=== PATIENT | male | born 1955 | race Caucasian/White ===

== ENCOUNTER 2020-12-08 08:19 | Outpatient (REF) | payer MEDICARE, MEDICAID, SELFPAY ==
--- NOTE | 2020-12-08 12:34 | MHC.AU.ANR ---
Adult Audiological Evaluation Date of Visit: 12/08/20 Reason for Appointment: Audiological evaluation due to concern for decreased hearing. Mr. Jo reports difficulties hearing from the left ear over the past year. He also notes intermittent tinnitus from the left ear, which he describes as a low-pitch static. Does patient feel they have a hearing loss?: Yes If Yes, Which Ear?: Left Ear When Was Hearing Difficulty First Noticed?: 1 year ago Has hearing been tested previously?: No Hearing Handicap Inventory: HHIE SCORE: 16 Based on HHIE score, patient has: Mild to moderate perceived hearing handicap Ear History: Bothersome Tinnitus/Ringing/Noises in Ears: Yes, left ear History of occupational noise exposure?: Yes: [employer] for 40 years, does not use HPDs Medical History: Medical History: Diabetes, Heart Problems, High Blood Pressure, Vascular Problems Otoscopy: Right Ear: Non-occluding cerumen deep in canal, able to visualize TM Left Ear: Non-occluding cerumen deep in canal, able to visualize TM Tympanometry: Tympanometry performed due to: Conductive component found in audiometric results Right Ear: Normal Middle Ear System (Type A) Left Ear: Normal Middle Ear System (Type A) Hearing Evaluation: Transducer(s) Used: Insert Earphones, Bone Conduction Method: Conventional Audiometry Stimuli Used: Pure Tones Right Ear: Description of Hearing: Normal hearing from 250-500 Hz, sloping to a mild to moderate sensorineural hearing loss from 750-8000 Hz. Left Ear: Description of Hearing: Mild hearing loss at 250 Hz, sloping to a moderate mixed hearing loss from 500-1000 Hz, a moderate to moderately severe sensorineural hearing loss from 8657-3701 Hz, a moderately severe mixed hearing loss at 4000 Hz, a moderate hearing loss at 6000 Hz and a severe hearing loss at 8000 Hz. Speech Recognition Threshold (SRT): Method Used: Monitored Live Voice Stimuli Used: Spondee Words Right Ear: 25 dBHL Left Ear: 45 dBHL Word Discrimination: Method: Recorded Lists Word Lists Used: NU-6 Right Ear: 96% at 65 dBHL Left Ear: 76% at 85 dBHL Recommendations: Audiological re-evaluation in one year. Referral to Ear, Nose, and Throat is recommended. Recommend referral to ENT to address conductive hearing loss in the left ear. If unable to be treated, hearing aids are recommended. Mr. Jo is welcome to return for a hearing aid consultation after being evaluated by an ENT physician. Diagnosis: Primary Diagnosis: H90.A32 Mixed HL, Unilateral, Left Ear, W/Restricted Contralateral Secondary Diagnosis: H90.A21 SNHL, Unilateral Right Ear, W/Restricted Contralateral Hearing Services Performed: Services Performed: Comprehensive Audiological Evaluation (CPT 48855) Tympanometry (CPT 17676) Signature: Provider: Bienvenido Smith, CCC-A
== END 2020-12-08 08:20 | disposition home or self-care (01) ==
LOC: HO.SH 08:19
PROVIDERS: Visit Provider Nurse Practitioner Family
DX: H90.A32 Mixed conductive and sensorineural hearing loss, unilateral, left ear with restricted hearing on the contralateral side (principal); H90.A21 Sensorineural hearing loss, unilateral, right ear, with restricted hearing on the contralateral side
CPT/HCPCS: 92557; 92567

== ENCOUNTER 2020-12-08 09:44 | Outpatient (REF) | payer MEDICARE, MEDICAID, SELFPAY ==
[2020-12-08 11:03] LABS: MANUAL DIFF FLAG NO
[2020-12-08 11:07] LABS: Basophils Percent Auto 0.3 % (0-2); Eosinophils Absolute Auto 0.4 X10*3/uL (0.0-0.4); Eosinophils Percent Auto 5.4 % (0-4); Hematocrit 43.1 % (42-52); Hemoglobin 14.2 g/dl (14.0-18.0); Imm Gran Abs Auto 0.01 X10*3/uL (0.00-0.03); Imm Gran Pct Auto 0.1 % (0.0-0.4); Lymphocytes Absolute Auto 1.8 X10*3/uL (1.2-4.9); Lymphocytes Percent Auto 25.1 % (20-40); Mean Corpuscular HGB Conc 32.9 g/dl (31.0-36.0); Mean Corpuscular Hemoglobin 30.5 pg (27.0-33.0); Mean Corpuscular Volume 92.5 fL (80-98); Mean Platelet Volume 9.8 fL (9.4-12.4); Monocytes Absolute Auto 0.5 X10*3/uL (0.1-1.2); Monocytes Percent Auto 7.4 % (2-11); Neutrophils Absolute Auto 4.4 X10*3/uL (2.0-8.3); Neutrophils Percent Auto 61.7 % (45-73); Platelet Count 241 X10*3/uL (160-400); Red Blood Count 4.66 X10*6/uL (4.60-5.80); Red Cell Distribution Width 14.1 % (11.0-16.0); White Blood Count 7.2 X10*3/uL (4.8-10.8)
[2020-12-08 11:19] LABS: Glucose Urine UA NEG (NEG); Leukocyte Esterase Urine NEG (NEG); Nitrite Urine NEG (NEG); PH 5.5 (5.0-8.0); Specific Gravity - Urine 1.025 (1.005-1.025); Urine Blood NEG (NEG); Urine Ketones NEG (NEG); Urine Protein NEG (NEG-TRACE)
[2020-12-08 11:21] LABS: Appearance Urine CLEAR; Color Urine YELLOW
[2020-12-08 11:38] LABS: RBC Urine 0-2 /HPF (0); Squamous Epithelial Cell Urine TRACE /LPF; WBC Urine 0-2 /HPF (0-4)
[2020-12-08 11:39] LABS: Albumin Level 4.1 g/dL (3.5-5.0); Anion Gap 12 (12-20); Blood Urea Nitrogen 41 mg/dL (9-16); Calcium 9.6 mg/dL (8.4-10.2); Carbon Dioxide 25 mmol/L (22-29); Chloride 107 mmol/L (96-108); Estimated Glomerular Filt Rate 53; Phosphorus 4.6 mg/dL (2.7-4.5); Potassium 4.7 mmol/L (3.3-5.1); Sodium 139 mmol/L (135-145)
[2020-12-08 12:03] LABS: Vitamin D 25-OH Total 43.1 ng/mL (>30)
[2020-12-08 12:05] LABS: Creatinine Urine 134.62 mg/dL; Microalbum/Creatinine Ratio Ur 13.3 ug/mg cr; Total Protein Urine Random < 7 mg/dL (<12)
[2020-12-08 13:10] LABS: Renal w Reflex Lab Use Only Order verified
[2020-12-09 13:42] LABS: Calcium (PTHI) 10.1 mg/dL (8.6-10.3); PTHI 22 pg/mL (14-64)
== END 2020-12-08 09:45 | disposition home or self-care (01) ==
LOC: HO.HMGCLDS 09:44
PROVIDERS: PCP Nurse Practitioner Family; Visit Provider Internal Medicine Nephrology
DX: I10 Essential (primary) hypertension (principal); R80.9 Proteinuria, unspecified
CPT/HCPCS: 36415; 80051; 81001; 82040; 82043; 82306; 82310; 82565; 83735; 83970; 84100; 84156; 84520; 85025

== ENCOUNTER 2020-12-29 07:45 | Outpatient (REF) | payer MEDICARE, MEDICAID, SELFPAY ==
[2020-12-29 17:22] LABS: Creatinine Urine 121.71 mg/dL; Microalbum/Creatinine Ratio Ur 41.9 ug/mg cr
[2020-12-29 17:37] LABS: Estimated Average Glucose 126 mg/dL
[2020-12-29 17:50] LABS: Alanine Aminotransferase 33 U/L (0-40); Albumin Level 4.3 g/dL (3.5-5.0); Alkaline Phosphatase 92 U/L (39-117); Anion Gap 16 (12-20); Aspartate Amino Transferase 19 U/L (5-37); Bilirubin Total 0.9 mg/dL (0.0-1.0); Blood Urea Nitrogen 37 mg/dL (9-16); Calcium 9.8 mg/dL (8.4-10.2); Carbon Dioxide 24 mmol/L (22-29); Chloride 106 mmol/L (96-108); Cholesterol 126 mg/dL; Estimated Glomerular Filt Rate 51; Glucose Fasting 120 mg/dL (60-99); HDL Cholesterol 42 mg/dL; LDL Cholesterol Calculated 52 mg/dl; Potassium 4.5 mmol/L (3.3-5.1); Sodium 141 mmol/L (135-145); Triglycerides 162 mg/dL
[2020-12-29 17:58] LABS: TSH reflex Free T4 1.23 uIU/mL (0.32-4.0)
== END 2020-12-29 07:46 | disposition home or self-care (01) ==
LOC: HO.HMGCLDS 07:45
PROVIDERS: PCP Nurse Practitioner Family; Visit Provider Nurse Practitioner Family
DX: Z12.5 Encounter for screening for malignant neoplasm of prostate (principal); E11.21 Type 2 diabetes mellitus with diabetic nephropathy; Z79.4 Long term (current) use of insulin
CPT/HCPCS: 36415; 80053; 80061; 82043; 83036; 84153; 84443

== ENCOUNTER → 2021-03-11 09:27 | Outpatient (BNVA) | payer MEDICARE, MEDICAID, SELFPAY | PROVIDERS: PCP Nurse Practitioner Family; Visit Provider Urology | DX: N40.1 Benign prostatic hyperplasia with lower urinary tract symptoms (principal); N13.8 Other obstructive and reflux uropathy | CPT/HCPCS: 51798; 99212 ==

== ENCOUNTER → 2021-03-15 09:49 | Outpatient (BNVA) | payer MEDICARE, MEDICAID, SELFPAY | PROVIDERS: PCP Nurse Practitioner Family; Referring Provider Nurse Practitioner Family; Visit Provider Nurse Practitioner | DX: Z12.11 Encounter for screening for malignant neoplasm of colon (principal); I48.20 Chronic atrial fibrillation, unspecified; D12.6 Benign neoplasm of colon, unspecified; Z79.01 Long term (current) use of anticoagulants | CPT/HCPCS: 99202 ==

== ENCOUNTER → 2021-06-13 09:21 | Day surgery (SDC) | payer MEDICARE, MEDICAID, SELFPAY ==
[2021-06-07 16:02] VITALS: BMI 32.3
--- NOTE | 2021-06-09 13:37 | P.CONAN_ITS ---
HPI - Anesthesia Eval Consult details Narrative: Cx'd by surgeon d/t poor prep 66yo M for Colonoscopy Eliquis for afib Pt follows with cardiology at [facility] for CAD, ischemic CMP. Last seen 05/2020 - stable for 1 year f/u,but pt cx'd d/t family emergency. Last ECHO 2017. Case reviewed with Dr Landers. OK to proceed if patient asymptomatic from cardiac symptoms. [facility] Active Problems Active Problems: All Active Problems (Updated 06/08/21 @ 08:11 by Anna Diamond, CHARISSE) Screening for colon cancer (Acute) Screening PSA (prostate specific antigen) (Acute) Hearing loss (Acute) Conductive hearing loss in left ear (Acute) BPH w urinary obs/LUTS (Acute) Chronic a-fib (Acute) Chronic anticoagulation (Acute) Tubular adenoma of colon (Acute) Peripheral vascular disease (Acute) Coronary artery disease (Acute) Benign enlargement of prostate (Acute) Dyslipidemia (Acute) Diabetes mellitus with diabetic nephropathy, with long-term current use of insulin (Acute) Hypertension (Acute) Past Medical History Medical History (Updated 06/08/21 @ 08:11 by Anna Diamond, CHARISSE) Atrial fibrillation Benign enlargement of prostate CHF (congestive heart failure) Coronary artery disease COVID-19 vaccine series completed Diabetes mellitus with diabetic nephropathy, with long-term current use of insulin Dyslipidemia Gout History of amputation of toe Hx of cardiomyopathy Hyperparathyroidism Hypertension On anticoagulant therapy Osteomyelitis of left foot Osteomyelitis of right foot Peripheral vascular disease Right foot ulcer Family History Family History Mother Alzheimer disease Father Coronary artery disease Surgical History Surgical History (Updated 06/07/21 @ 15:54 by Anna Diamond, CHARISSE) History of coronary artery bypass graft History of parathyroidectomy History of toe surgery History of toe surgery Hx of colonoscopy Hx of foot surgery Social History Social History (Updated 03/15/21 @ 10:15 by Adriana Torres) Household Members: Family Are you a primary personal care worker to a significant other at home: No Do you presently have visiting nurse or other home services: No Alcohol intake: current Alcohol intake frequency: holidays/special occasions only Patient Tobacco Use Status: Never used Tobacco Use of substances other than those prescribed or required for medical reasons: Yes Substance Use Frequency: Occasionally Have you been hit, kicked, punched, or otherwise hurt by someone within the past year? If so, by whom?: No Are you DNR?: No Advance Directives: No Advance Directives Information Provided: No Advance Directives on File: No Recently lost weight without trying: No Eating poorly because of decreased appetite: No Nutrition Risks: No Nutritional Risk Meds Allergies Allergy/AdvReac Type Severity Reaction Status Date / Time No Known Allergies Allergy Verified 03/15/21 10:02 Home Medications Medication Instructions Recorded Confirmed Last Taken Type acetaminophen 325 mg tablet 650 mg PO 06/25/20 03/03/21 Unknown History apixaban 5 mg tablet 5 mg PO BID 06/25/20 06/07/21 Unknown History mupirocin 2 % topical ointment TOPICAL 06/25/20 03/03/21 Unknown History potassium chloride 10 mEq 10 meq PO DAILY 06/25/20 06/07/21 Unknown History capsule,extended release aspirin 81 mg tablet,delayed 81 mg PO DAILY 03/03/21 06/07/21 Unknown History release (Adult Low Dose Aspirin) omega-3 fatty acids 1,000 mg 1,000 mg PO DAILY 03/03/21 06/07/21 Unknown History capsule (Fish Oil Concentrate) Exam Exam Date and Time: June 09, 2021 1337 Height,Weight and Vital Signs: Height 6 ft 1 in Weight 111.13 kg Pertinent Lab Results Pertinent Lab Results: Laboratory Tests 12/08/20 12/29/20 09:55 07:52 WBC 7.2 Hgb 14.2 Hct 43.1 Plt Count 241 Sodium 141 Potassium 4.5 Chloride 106 Carbon Dioxide 24 BUN 37 H Creatinine 1.39 Narrative Narrative: ECHO 2016 LVEF 50%, Concentric LVH LA moderately dilated RA moderately dilated Diffuse mild increased mitral valve leaflet thickening. Circumfrential MAC. Trace mitral regurg. No Mitral Stenosis Aortic valve is sclerotic, no stenosis or regurg No significant change from 2014 Assessment and Plan Assessment Anesthesia Assessment: Chart Reviewed
--- NOTE | 2021-06-13 09:42 | PC.NURSE ---
Patient stated I took half the prep, then it just started flowing. I didn't like the taste. I wanted to sleep. When questioned on what his bowel movement looked like he stated dark brown diarrhea. Spoke with Dr Ocampo, case to be cancelled for today and patient to call office to reschedule. Patient instructed to call office, given back all belongings, patient called own ride, and shown to waiting room.
== END ==
PROVIDERS: PCP Nurse Practitioner Family; Visit Provider Internal Medicine Gastroenterology
DX: Z12.11 Encounter for screening for malignant neoplasm of colon (principal); Z53.09 Procedure and treatment not carried out because of other contraindication

== ENCOUNTER 2022-01-11 13:37 | Outpatient (REF) | payer MEDICARE, MEDICAID, SELFPAY ==
[2022-01-11 16:40] LABS: Hematocrit 37.1 % (42.0-52.0); Mean Corpuscular HGB Conc 32.3 g/dl (31.0-36.0); Mean Corpuscular Hemoglobin 27.7 pg (27.0-33.0); Mean Corpuscular Volume 85.7 fL (80.0-98.0); Mean Platelet Volume 10.2 fL (9.4-12.4); Platelet Count 240 X10*3/uL (160-400); Red Blood Count 4.33 X10*6/uL (4.60-5.80); Red Cell Distribution Width 16.5 % (11.0-16.0); White Blood Count 6.9 X10*3/uL (4.8-10.8)
[2022-01-11 16:45] LABS: Appearance Urine CLEAR; Color Urine YELLOW; Glucose Urine UA NEG (NEG); Leukocyte Esterase Urine NEG (NEG); Nitrite Urine NEG (NEG); PH 5.5 (5.0-8.0); Specific Gravity - Urine 1.015 (1.005-1.025); Urine Blood NEG (NEG); Urine Ketones NEG (NEG); Urine Protein NEG (NEG-TRACE)
[2022-01-11 16:50] LABS: Albumin Level 3.9 g/dL (3.5-5.0); Anion Gap 15 (12-20); Blood Urea Nitrogen 35 mg/dL (9-16); Calcium 9.5 mg/dL (8.4-10.2); Carbon Dioxide 21 mmol/L (22-29); Chloride 107 mmol/L (96-108); Estimated Glomerular Filt Rate 53; Magnesium 1.8 mg/dL (1.6-2.6); Phosphorus 4.2 mg/dL (2.7-4.5); Potassium 4.9 mmol/L (3.3-5.1); Sodium 138 mmol/L (135-145)
[2022-01-11 17:02] LABS: Creatinine Urine 34.13 mg/dL; Microalbum/Creatinine Ratio Ur 26.3 ug/mg cr; Total Protein Urine Random < 7 mg/dL (<12)
[2022-01-11 17:14] LABS: Vitamin D 25-OH Total 49.4 ng/mL (>30)
[2022-01-13 12:26] LABS: Calcium (PTHI) 9.4 mg/dL (8.6-10.3); PTHI 32 pg/mL (16-77)
== END 2022-01-11 13:38 | disposition home or self-care (01) ==
LOC: HO.HMGCLDS 13:37
PROVIDERS: PCP Nurse Practitioner Family; Visit Provider Internal Medicine Nephrology
DX: I73.9 Peripheral vascular disease, unspecified (principal); I25.10 Atherosclerotic heart disease of native coronary artery without angina pectoris; I50.9 Heart failure, unspecified; R80.1 Persistent proteinuria, unspecified; E78.5 Hyperlipidemia, unspecified; N18.31 Chronic kidney disease, stage 3a
CPT/HCPCS: 36415; 80051; 81003; 82040; 82043; 82306; 82310; 82565; 83735; 83970; 84100; 84156; 84520; 85027; 87086

== ENCOUNTER → 2022-03-10 08:58 | Outpatient (BNVA) | payer MEDICARE, MEDICAID, SELFPAY | PROVIDERS: PCP Nurse Practitioner Family; Visit Provider Urology | DX: N40.1 Benign prostatic hyperplasia with lower urinary tract symptoms (principal); N13.8 Other obstructive and reflux uropathy | CPT/HCPCS: 51798; 99212 ==